=== PATIENT | female | born 1950 | race Caucasian/White ===

== ENCOUNTER 2022-02-13 13:06 | Emergency (ER) | payer OTHER, MEDICAID ==
[~2022-02-13] VITALS: Ht 165.1 cm; Wt 116.1 kg
[2022-02-13 13:06] VITALS: BP_SYST 140
--- NOTE | 2022-02-13 13:06 | NUR ---
Placed in room 8 . Placed on hand winder, blood pressure machine and pulse oximeter. To gown for exam. Side rails up. Report given to SHAVONNE CHANEL.
--- NOTE | 2022-02-13 13:07 | NUR ---
DR SMALL AT BEDSIDE EXAMINING PT.
--- NOTE | 2022-02-13 13:10 | NUR ---
PT COMPLAINED OF FEELING DIZZY THIS MORNING WHILE SHE WAS IN THE BACK OF THEIR APARTMENT FILLING UP WATER IN THE POOL. PT DENIES DISCOMFORT ON HER CHEST, DENIES DIZZINES NOW.
--- NOTE | 2022-02-13 13:20 | NUR ---
Extensive education provided on Covid swabbing, patient states, "I do not believe in those tests and why do I need to know if I have Covid". Education provided on Covid S/Sx.
--- NOTE | 2022-02-13 13:21 | NUR ---
COVID SWAB DONE AND SENT TO LAB
--- NOTE | 2022-02-13 13:58 | NUR ---
FINGERSTICK DONE 118 MG/DL.
[2022-02-13] MEDS ORDERED: NACL 0.9% 1,000 ML IV ONE (15:15)
[2022-02-13 15:39] LABS: BASOPHILS % (AUTO) 0.8 % (0.0-2.0); EOSINOPHILS % (AUTO) 0.1 % (0.0-4.0); HEMATOCRIT 39.4 % (36-48); HEMOGLOBIN 13.1 g/dL (12.0-16.0); LYMPHOCYTES # (AUTO) 0.7 K/uL (1.0-5.5); LYMPHOCYTES % (AUTO) 16.3 % (20.5-51.5); MEAN CORPUSCULAR HEMOGLOBIN 28 pg (27-31); MEAN CORPUSCULAR HGB CONC 33 % (32-36); MEAN CORPUSCULAR VOLUME 84 fL (79.0-98.0); MONOCYTES # (AUTO) 0.5 K/uL (0.0-1.0); MONOCYTES % (AUTO) 11.7 % (1.7-9.3); NEUTROPHILS # (AUTO) 3.3 K/uL (1.8-7.7); NEUTROPHILS % (AUTO) 71.1 % (40.0-70.0); PLATELET COUNT (AUTO) 157 K/uL (130-430); RED BLOOD CELL COUNT(AUTO) 4.71 MIL/uL (4.2-6.2); RED CELL DISTRIBUTION WIDTH 14.2 % (9.0-15.0); WHITE BLOOD COUNT (AUTO) 4.6 K/uL (4.8-10.8)
[2022-02-13 15:41] LABS: ANION GAP 10 (5-15); CALCIUM 8.4 mg/dL (8.4-11.0); CHLORIDE 107 mmol/L (98-107); CREATININE 1.11 mg/dL (0.55-1.30); GLUCOSE 113 mg/dL (70-99); POTASSIUM 4.2 mmol/L (3.5-5.1); SODIUM SERUM 141 mmol/L (136-145); UREA NITROGEN, BLOOD 20 mg/dL (8-21)
[2022-02-13 15:56] LABS: ALANINE AMINOTRANSFERASE 31 U/L (12-78); ALBUMIN 2.9 g/dL (3.4-4.8); ASPARTATE AMINOTRANSFERASE 30 U/L (10-37); TOTAL BILIRUBIN 0.4 mg/dL (0.0-1.0)
[2022-02-13 18:42] LABS: BILIRUBIN,URINE NEGATIVE (NEGATIVE); COLOR,URINE YELLOW (YELLOW); GLUCOSE,URINE NEGATIVE (NEGATIVE); KETONES,URINE TRACE (NEGATIVE); LEUKOCYTE ESTERASE ,URINE 1+ (NEGATIVE); NITRITE, URINE POSITIVE (NEGATIVE); PH,URINE 5.5 (5.0-8.0); PROTEIN URINE NEGATIVE (NEGATIVE); UROBILINOGEN,URINE 0.2 (0.2-1.0)
[2022-02-13 18:46] LABS: BLOOD, URINE TRACE (NEGATIVE); CLARITY/URINE HAZY (CLEAR)
[2022-02-13] MEDS ORDERED: cefTRIAXone 1 GM IVPB PREMIX 50 ML IV ONE (19:00)
[2022-02-13 19:12] LABS: BACTERIA,URINE MANY /HPF (None Seen)
[2022-02-13] MEDS ORDERED: CIPR500T5 PO (19:29)
[2022-02-13 19:36] VITALS: BP_SYST 112
--- NOTE | 2022-02-13 19:36 | NUR ---
Patient given written and verbal discharge instructions and verbalizes understanding. ER MD discussed with patient the results and treatment provided. Patient in stable condition. ID arm band removed. IV catheter removed intact and dressing applied, no active bleeding. Rx of CIPRO given. Patient educated on pain management and to follow up with PMD. Pain Scale 0/10 Opportunity for questions provided and answered. Medication side effect fact sheet provided.
== END 2022-02-13 19:36 | disposition home or self-care (01) ==
LOC: SED 13:06
DX: U07.1 COVID-19 (principal); N39.0 Urinary tract infection, site not specified; E86.0 Dehydration; R42 Dizziness and giddiness; Z79.899 Other long term (current) drug therapy
CPT/HCPCS: 99285; 96365; 71045; 96361; 87426; 80053; 81000; 82962; 85025; 87040; 87086; 36415; 93005; 83605; J0696; J7030